=== PATIENT | female | born 1970 | race Caucasian/White ===

== ENCOUNTER → 2017-03-09 | Outpatient (CLI) | payer OTHER ==
--- NOTE | 2017-03-10 11:14 | MM ---
Reason for exam: screening (asymptomatic). Last mammogram was performed 1 year and 1 month ago. History: Patient is postmenopausal. Taking hormonal contraceptives for 10 years beginning at age 23. Physical Findings: A clinical breast exam by your physician is recommended on an annual basis and results should be correlated with mammographic findings. MG 3D Screening Mammo W/Cad Bilateral CC and MLO view(s) were taken. Prior study comparison: February 15, 2016, bilateral MG diagnostic mammo w CAD DONI. February 05, 2015, right breast MG 3d work up w/cad RT. There are outer breast asymmetries bilaterally at posterior depth on the left and at middle depth on the right deep to the stable calcifications on 3D views. ASSESSMENT: Incomplete: need additional imaging evaluation, BI-RAD 0 RECOMMENDATION: Special view mammogram of both breasts. If lesion persists on supplemental views, image directed ultrasound is recommended. [facility] will attempt to contact patient to return for supplemental views and ultrasound if indicated.
== END ==
LOC: RADMAMWWP 07:15
PROVIDERS: ATTEND Obstetrics & Gynecology
DX: Z12.31 Encounter for screening mammogram for malignant neoplasm of breast (principal)
CPT/HCPCS: 77063; G0202

== ENCOUNTER → 2017-03-22 | Outpatient (CLI) | payer OTHER ==
--- NOTE | 2017-03-22 07:55 | MM ---
Reason for exam: additional evaluation requested from abnormal screening. Last mammogram was performed less than 1 month ago. History: Patient is postmenopausal. Taking hormonal contraceptives for 10 years beginning at age 23. Physical Findings: Nurse did not find any significant physical abnormalities on exam. MG 3D Work Up W/Cad DONI Bilateral spot compression CC and LM view(s) were taken. Prior study comparison: March 09, 2017, bilateral MG 3d screening mammo w/cad. February 15, 2016, bilateral MG diagnostic mammo w CAD DONI. February 02, 2015, bilateral MG screening mammo w CAD. January 15, 2014, bilateral MG screening mammo w CAD. August 06, 2012, bilateral digital screening mammo w/CAD. There are scattered fibroglandular densities. No distinct lesions on additional views provided. These results were verbally communicated with the patient and result sheet given to the patient on 03/22/17. ASSESSMENT: Benign, BI-RAD 2 RECOMMENDATION: Return to routine screening mammogram schedule for both breasts.
== END | disposition home or self-care (01) ==
LOC: RADMAMWWP 06:59
PROVIDERS: ATTEND Obstetrics & Gynecology
DX: R92.8 Other abnormal and inconclusive findings on diagnostic imaging of breast (principal)
CPT/HCPCS: G0204; G0279

== ENCOUNTER → 2018-04-02 | Outpatient (CLI) | payer OTHER ==
--- NOTE | 2018-04-03 07:34 | MM ---
Reason for exam: screening (asymptomatic). Last mammogram was performed 1 year ago. History: Patient is postmenopausal. Taking hormonal contraceptives for 24 years beginning at age 23. Physical Findings: A clinical breast exam by your physician is recommended on an annual basis and results should be correlated with mammographic findings. MG 3D Screening Mammo W/Cad Bilateral CC and MLO view(s) were taken. Prior study comparison: March 22, 2017, bilateral MG 3d work up w/cad DONI. March 09, 2017, bilateral MG 3d screening mammo w/cad. The breast tissue is heterogeneously dense. This may lower the sensitivity of mammography. Calcifications in the right breast. No significant changes when compared with prior studies. ASSESSMENT: Benign, BI-RAD 2 RECOMMENDATION: Routine screening mammogram of both breasts in 1 year.
== END | disposition home or self-care (01) ==
LOC: RADMAMWWP 07:09
PROVIDERS: ATTEND Obstetrics & Gynecology
DX: Z12.31 Encounter for screening mammogram for malignant neoplasm of breast (principal)
CPT/HCPCS: 77063; 77067

== ENCOUNTER → 2019-06-03 | Outpatient (CLI) | payer OTHER, BC ==
--- NOTE | 2019-06-03 10:48 | MM ---
Reason for exam: screening (asymptomatic). Last mammogram was performed 1 year and 2 months ago. History: Patient is postmenopausal. Taking hormonal contraceptives for 24 years beginning at age 23. Physical Findings: A clinical breast exam by your physician is recommended on an annual basis and results should be correlated with mammographic findings. MG 3D Screening Mammo W/Cad Bilateral CC and MLO view(s) were taken. Prior study comparison: April 02, 2018, bilateral MG 3d screening mammo w/cad. March 22, 2017, bilateral MG 3d work up w/cad DONI. The breast tissue is heterogeneously dense. This may lower the sensitivity of mammography. Benign appearing bilateral calcifications. No suspicious abnormality. No significant changes when compared with prior studies. ASSESSMENT: Benign, BI-RAD 2 RECOMMENDATION: Routine screening mammogram of both breasts in 1 year.
== END | disposition home or self-care (01) ==
LOC: RADMAMWWP 07:04
PROVIDERS: ATTEND Obstetrics & Gynecology
DX: Z12.31 Encounter for screening mammogram for malignant neoplasm of breast (principal)
CPT/HCPCS: 77063; 77067

== ENCOUNTER → 2019-06-14 | Outpatient (CLI) | payer BC ==
[2019-06-14 12:02] LABS: Luteinizing Hormone 4.6 mIU/mL
[2019-06-14 12:03] LABS: Estradiol 22.6 pg/mL; Follicle Stimulating Hormone 9.9 mIU/mL
== END | disposition home or self-care (01) ==
LOC: LABWHC1 07:49
PROVIDERS: ATTEND Obstetrics & Gynecology
DX: N91.2 Amenorrhea, unspecified (principal)
CPT/HCPCS: 36415; 82670; 83001; 83002

== ENCOUNTER → 2019-09-27 | Outpatient (CLI) | payer BC | END | disposition home or self-care (01) | LOC: LABWHC1 08:22 | PROVIDERS: ATTEND Surgery Plastic and Reconstructive Surgery | DX: U07.1 COVID-19 (principal) ==

== ENCOUNTER 2019-10-02 07:31 | Day surgery (SDC) | payer BC ==
[2019-09-27 10:23] VITALS: BMI 32.9
[~2019-10-02 07:31] MED LIST: LACTATED RINGERS 1,000 ML IV SCH
[2019-10-02] MEDS ORDERED: LIDOCAINE 1% (10MG/ML) FOR IV START INTRADERMA ONE (08:06)
[2019-10-02 08:11] VITALS: RESP 16; TEMP 96.8
--- NOTE | 2019-10-02 08:11 | P.GSHP ---
History of Present Illness H&P Date: 10/02/19 CHIEF COMPLAINT: Colon screen HISTORY OF PRESENT ILLNESS: The patient is a 49-year-old female who presents for colon screen. Lower endoscopy was offered for further evaluation and management. PAST MEDICAL HISTORY: Please see list. PAST SURGICAL HISTORY: Please see list. MEDICATIONS: Please see list. ALLERGIES: Please see list. SOCIAL HISTORY: No illicit drug use FAMILY HISTORY: No reports of Crohn disease or ulcerative colitis. REVIEW OF ORGAN SYSTEMS: CONSTITUTIONAL: No reports of fevers or chills. PHYSICAL EXAM: VITAL SIGNS: Stable GENERAL: Well-developed pleasant in no acute distress. HEENT: No scleral icterus. Extraocular movements grossly intact. Moist buccal mucosa. NECK: Supple without lymphadenopathy. CHEST: Unlabored respirations. Equal bilateral excursions. CARDIOVASCULAR: Regular rate and rhythm. Distal 2+ pulses. ABDOMEN: Soft, nontender, nondistended. MUSCULOSKELETAL: No clubbing, cyanosis, or edema. ASSESSMENT: 1. Colon screen. PLAN: 1. Recommend proceeding with a lower endoscopy Past Medical History Past Medical History: Hypertension Additional Past Medical History / Comment(s): CHRONIC CONSTIPATION History of Any Multi-Drug Resistant Organisms: None Reported Past Surgical History: Uterine Ablation Additional Past Surgical History / Comment(s): UTERINE ABLATION 2009 Past Anesthesia/Blood Transfusion Reactions: No Reported Reaction Smoking Status: Never smoker - Past Family History Mother Family Medical History: Cancer Medications and Allergies Home Medications Medication Instructions Recorded Confirmed Type Control 1 tab PO DAILY 09/27/19 10/02/19 History Lisinopril [Zestril] 10 mg PO DAILY 09/27/19 10/02/19 History Allergies Allergy/AdvReac Type Severity Reaction Status Date / Time No Known Allergies Allergy Verified 10/02/19 07:51
[2019-10-02] MEDS ORDERED: PROPOFOL 10 MG/ML 20 ML VIAL IV ONE (08:31)
--- NOTE | 2019-10-02 08:54 | P.PCN ---
Date of Procedure: 10/02/19 Description of Procedure: PREOPERATIVE DIAGNOSIS: Colonoscopy screening. Family history colon cancer, father POSTOPERATIVE DIAGNOSIS: Colonoscopy screening. Family history colon cancer, father Sigmoid colon polyp OPERATION: Colonoscopy to the ileocecal valve and appendiceal orifice. Colonoscopy with cold forceps biopsy SURGEON: Blossom Chandra MD. ANESTHESIA: MAC. INDICATIONS: The patient is a 49-year-old female who presents for her first colonoscopy screening. Benefits and risks were described and informed consent was obtained. DESCRIPTION OF PROCEDURE: The patient had undergone Suprep. She had been brought into the operating room and laid in the left lateral decubitus position. After adequate intravenous sedation, the rectum was examined with 2% lidocaine jelly. No external hemorrhoids were encountered. The rectal tone was within normal limits. No lesions were palpated in the rectal vault. An Olympus colonoscope was advanced until the ileocecal valve and appendiceal orifice were clearly viewed. The prep was excellent with clear visualization of the mucosal folds. The scope was removed with visualization of each mucosal fold. No scattered diverticulosis was encountered. A 4 mm colon polyp was identified at the sigmoid colon, 20 cm from the anal verge removed with cold forceps biopsy. No evidence of focal colitis was found. Retroflexion of the scope demonstrated grade 1 internal hemorrhoids without active bleeding or inflammation. The colon was desufflated. The patient had tolerated the procedure well. Withdrawal time was over 6 minutes. FINDINGS: Aronchick preparation quality scale 1 (1-5) Internal hemorrhoids, grade 1 No external prolapsed hemorrhoids. No arteriovenous malformations. Removal of one colon polyp: - A 4 mm colon polyp was identified at the sigmoid colon, 20 cm from the anal verge removed with cold forceps biopsy. No focal colitis. RECOMMENDATIONS: Lower endoscopy in 5 years, 2024 Plan - Discharge Summary Discharge Rx Participant: No New Discharge Prescriptions: Continue Lisinopril [Zestril] 10 mg PO DAILY Control 1 tab PO DAILY Discharge Medication List Control 1 tab PO DAILY 09/27/19 [History] Lisinopril [Zestril] 10 mg PO DAILY 09/27/19 [History] Follow up Appointment(s)/Referral(s): Blossom Chandra MD [STAFF PHYSICIAN] - As Needed Patient Instructions/Handouts: Colorectal Polyps (IP), Colonoscopy (DC), *Surgery [facility] - (Anesthesia) Endoscopy Discharge Instructions Activity/Diet/Wound Care/Special Instructions: Repeat colonoscopy 5 years, 2024 Discharge Disposition: HOME SELF-CARE
[2019-10-02 09:15] VITALS: BP 115/75; PULSE 62
== END 2019-10-02 09:59 | disposition home or self-care (01) ==
LOC: ORWHC2ENDO 07:31
PROVIDERS: ATTEND Surgery Plastic and Reconstructive Surgery
DX: Z12.11 Encounter for screening for malignant neoplasm of colon (principal); K63.5 Polyp of colon; K64.0 First degree hemorrhoids; Z80.0 Family history of malignant neoplasm of digestive organs; I10 Essential (primary) hypertension; Z79.3 Long term (current) use of hormonal contraceptives; Z79.899 Other long term (current) drug therapy
CPT/HCPCS: 81025; 88305; 45380; J2704

== ENCOUNTER 2019-11-30 23:46 | Emergency (ER) | payer BC ==
[2019-11-30 23:54] VITALS: RESP 16; TEMP 98.2
[2019-12-01] MEDS ORDERED: AMOXIC-POT CLAV 875-125MG 1 EACH TAB PO STA (01:33)
[2019-12-01] MEDS ORDERED: AMOXIC-POT CLAV 875MG STARTER PACK 2 TAB BTL PO STA (01:33)
--- NOTE | 2019-12-01 01:33 | ED ---
General Adult HPI - General Chief complaint: ENT Stated complaint: FB in ear Time Seen by Provider: 11/30/19 23:56 Source: patient, RN notes reviewed, old records reviewed Mode of arrival: ambulatory Limitations: no limitations - History of Present Illness Initial comments: 49-year-old female patient presents to ED for foreign body left ear. Patient reports that she woke up and she felt something fluttering around in her ear. She thinks it's a moth. She denies any other complaints. Systemic: Pt denies fatigue, fever/chills, rash. Pt denies weakness, night sweats, weight loss. Neuro: Pt denies headache, visual disturbances, syncope or pre-syncope. HEENT: Pt denies ocular discharge or irritation, rhinorrhea, pharyngitis or notable lymphadenopathy. Cardiopulmonary: Pt denies chest pain, SOB, heart palpitations, dyspnea on exertion. Abdominal/GI: Pt denies abdominal pain, n/v/d. : Pt denies dysuria, burning w/ urination, frequency/urgency. Denies new onset urinary or bowel incontinence. MSK: Pt denies myalgia, loss of strength or function in extremities. Neuro: Pt denies new onset weakness, paresthesias. - Related Data Home Medications Medication Instructions Recorded Confirmed Control 1 tab PO DAILY 09/27/19 10/02/19 lisinopriL [Zestril] 10 mg PO DAILY 09/27/19 10/02/19 Previous Rx's Medication Instructions Recorded Amoxicillin/Potassium Clav 1 each PO Q12HR 7 Days #14 tab 12/01/19 [Augmentin 875-125 Tablet] Allergies Allergy/AdvReac Type Severity Reaction Status Date / Time No Known Allergies Allergy Verified 11/30/19 23:54 Review of Systems ROS Statement: Those systems with pertinent positive or pertinent negative responses have been documented in the HPI. ROS Other: All systems not noted in ROS Statement are negative. Past Medical History Past Medical History: No Reported History History of Any Multi-Drug Resistant Organisms: None Reported Past Surgical History: Uterine Ablation Past Psychological History: No Psychological Hx Reported Smoking Status: Never smoker Past Alcohol Use History: Occasional Past Drug Use History: None Reported General Exam - General Exam Comments Initial Comments: Constitutional: NAD, AOX3, Pt has pleasant affect. HEENT: NC/AT, trachea midline, neck supple, no lymphadenopathy. Posterior pharynx non erythematous, without exudates. External ears appear normal, without discharge. Likely insect noted in left ear. Visible TM intact. Some blood noted likely from the insect. Left TM pale zeng. Mucous membranes moist. EOM intact. There is no scleral icterus. No pallor noted. Cardiopulmonary: RRR, no murmurs, rubs or gallops, no JVD noted. Lungs CTAB in anterior and posterior murillo. No peripheral edema. Neuro: CN II-XII grossly intact. No nuchal rigidity. Limitations: no limitations Course Vital Signs 11/30/19 23:51 Temperature 98.2 F Pulse Rate 117 H Respiratory 16 Rate Blood Pressure 143/73 O2 Sat by Pulse 99 Oximetry Medical Decision Making - Medical Decision Making 49-year-old female patient presents to ED for evaluation of foreign body in left ear. There does appear to be insect in left ear. There is some blood likely from the insect, the infected dad. Multiple times to remove the insect were unsuccessful with forceps. Patient will discharge a follow-up with ENT tomorrow. Will be placed on prophylactic Augmentin. Will return to ED if condition worsens. Case discussed with Dr. Wong. Disposition Clinical Impression: Foreign body of ear, left Disposition: HOME SELF-CARE Condition: Stable Instructions (If sedation given, give patient instructions): Ear Foreign Body (ED) Additional Instructions: Follow-up with primary care provider and ENT tomorrow. Take antibiotics as directed. Return to ER if condition worsens. Prescriptions: Amoxicillin/Potassium Clav [Augmentin 875-125 Tablet] 1 each PO Q12HR 7 Days #14 tab Is patient prescribed a controlled substance at d/c from ED?: No Referrals: Roland Saunders DO [Primary Care Provider] - 1-2 days Raymon Beauchamp DO [Doctor of Osteopathic Medicine] - 1-2 days
[2019-12-01 01:53] VITALS: BP 132/73; PULSE 84
== END 2019-12-01 01:52 | disposition home or self-care (01) ==
LOC: EC 23:46
DX: T16.2XXA Foreign body in left ear, initial encounter (principal); Z79.899 Other long term (current) drug therapy; Z79.3 Long term (current) use of hormonal contraceptives
CPT/HCPCS: 69200; 99283

== ENCOUNTER → 2020-07-30 | Outpatient (CLI) | payer BC ==
--- NOTE | 2020-07-31 12:07 | MM ---
Reason for exam: screening (asymptomatic). Last mammogram was performed 1 year and 2 months ago. History: Patient is postmenopausal. Taking hormonal contraceptives for 24 years beginning at age 23. Physical Findings: A clinical breast exam by your physician is recommended on an annual basis and results should be correlated with mammographic findings. MG 3D Screening Mammo W/Cad Bilateral CC and MLO view(s) were taken. Prior study comparison: June 03, 2019, bilateral MG 3d screening mammo w/cad. April 02, 2018, bilateral MG 3d screening mammo w/cad. The breast tissue is heterogeneously dense. This may lower the sensitivity of mammography. Some dermal calcifications redemonstrated right upper outer quadrant. No significant changes when compared with prior studies. ASSESSMENT: Benign, BI-RAD 2 RECOMMENDATION: Routine screening mammogram of both breasts in 1 year.
== END | disposition home or self-care (01) ==
LOC: RADMAMWWP 06:52
PROVIDERS: ATTEND Obstetrics & Gynecology
DX: Z12.31 Encounter for screening mammogram for malignant neoplasm of breast (principal)
CPT/HCPCS: 77063; 77067

== ENCOUNTER → 2021-08-12 | Outpatient (CLI) | payer BC ==
--- NOTE | 2021-08-12 11:58 | BD ---
EXAMINATION TYPE: Axial Bone Density DATE OF EXAM: 08/12/2021 COMPARISON: NONE CLINICAL HISTORY: 50 years year old Female. ICD-10 CODE: Z78.0 POST MENOPAUSAL WITHOUT HRT Height: 63 Weight: 183 FRAX RISK QUESTIONS: Alcohol (3 or more units per day): NO Family History (Parent hip fracture): NO Glucocorticoids (More than 3mos): NO (Ex: prednisone, prednisolone, methylprednisolone, dexamethasone, and hydrocortisone). History of Fracture in Adulthood: NO Secondary Osteoporosis: 1. Type 1 Diabetes: NO 2. Hyperthyroidism: NO 3. Menopause before 45: NO 4. Malnutrition: NO 5. Chronic liver disease: NO Rheumatoid Arthritis: NO Current Tobacco Use: NO RISK FACTORS HISTORY OF: Diet low in dairy products/other sources of calcium: yes If Premenopausal, do you have irregular periods: ABLATION Take estrogen and/or progesterone medications: BC PILLS How lon YEARS MEDICATIONS: control pills, Lexapro, BP meds, Vit D EXAM MEASUREMENTS: Bone mineral densitometry was performed using the [employer] System. Bone mineral density as measured about the Lumbar spine is: ----- L1-L4(G/cm2): 1.215 T Score Values are as follows: ----- L1: -0.6 ----- L2: -0.2 ----- L3: 0.5 ----- L4: 1.2 ----- L1-L4: 0.3 Bone mineral density has BASELINE Bone mineral density about the R hip (g/cm2): 0.985 Bone mineral density about the L hip (g/cm2): 0.932 T Score values are as follows: -----R Neck: -1.0 -----L Neck: -1.4 -----R Total: -0.2 -----L Total: -0.6 Bone mineral density is baseline FRAX%s: The graph provided illustrates a 5.3% chance for a major osteoporotic fx and a 0.4% chance fo r the hips probability for fx in 10 years time. IMPRESSION: Osteopenia (T Score between -2.5 and -1). There is slightly increased risk of fracture and the patient may be considered for treatment. Re-Screen 2-5 years. NOTE: T-SCORE=SD OF THE YOUNG ADULT MEAN.
--- NOTE | 2021-08-13 14:24 | MM ---
Reason for exam: screening (asymptomatic). Last mammogram was performed 1 year ago. History: Patient is postmenopausal. Taking hormonal contraceptives for 24 years beginning at age 23. Physical Findings: A clinical breast exam by your physician is recommended on an annual basis and results should be correlated with mammographic findings. MG 3D Screening Mammo W/Cad Bilateral CC and MLO view(s) were taken. Prior study comparison: July 30, 2020, bilateral MG 3d screening mammo w/cad. June 03, 2019, bilateral MG 3d screening mammo w/cad. There are scattered fibroglandular densities. No significant changes when compared with prior studies. ASSESSMENT: Benign, BI-RAD 2 RECOMMENDATION: Routine screening mammogram of both breasts in 1 year.
== END | disposition home or self-care (01) ==
LOC: RADMAMWWP 07:00
PROVIDERS: ATTEND Obstetrics & Gynecology
DX: Z12.31 Encounter for screening mammogram for malignant neoplasm of breast (principal); M85.80 Other specified disorders of bone density and structure, unspecified site; Z78.0 Asymptomatic menopausal state
CPT/HCPCS: 77063; 77067; 77080

== ENCOUNTER → 2022-08-15 | Outpatient (CLI) | payer BC ==
--- NOTE | 2022-08-16 07:28 | MM ---
Reason for Exam: Screening (asymptomatic). Last screening mammogram was performed 12 month(s) ago. Patient History: Menarche at age 10. First Full-Term at age 24. Postmenopausal. Currently using Hormonal Contraceptives, beginning at age 23 for 24 years. Risk Values: Sondra 5 year model risk: 1.2%. NCI Lifetime model risk: 9.4%. Prior Study Comparison: 06/03/2019 Bilateral Screening Mammogram, [facility]. 07/30/2020 Bilateral Screening Mammogram, [facility]. 08/12/2021 Bilateral Screening Mammogram, [facility]. Tissue Density: The breast tissue is heterogeneously dense. This may lower the sensitivity of mammography. Findings: Analyzed By CAD. There is no suspicious group of microcalcifications or new suspicious mass in either breast. Overall Assessment: Negative, BI-RAD 1 Management: Screening Mammogram of both breasts in 1 year. A clinical breast exam by your physician is recommended on an annual basis and results should be correlated with mammographic findings. Electronically signed and approved by: Tenzin Wilson M.D. Radiologis
== END | disposition home or self-care (01) ==
LOC: RADMAMWWP 08:09
PROVIDERS: ATTEND Obstetrics & Gynecology
DX: Z12.31 Encounter for screening mammogram for malignant neoplasm of breast (principal); Z78.0 Asymptomatic menopausal state
CPT/HCPCS: 77063; 77067

== ENCOUNTER → 2023-08-23 | Outpatient (CLI) | payer BC ==
--- NOTE | 2023-08-24 09:01 | MM ---
Reason for Exam: Screening (asymptomatic). Last mammogram was performed 1 year(s) and 1 month(s) ago. Patient History: Menarche at age 10. First Full-Term at age 24. Postmenopausal. Currently using Hormonal Contraceptives, beginning at age 23 for 24 years. Risk Values: Sondra 5 year model risk: 1.3%. NCI Lifetime model risk: 9.3%. Prior Study Comparison: 07/30/2020 Bilateral Screening Mammogram, [facility]. 08/12/2021 Bilateral Screening Mammogram, [facility]. 08/15/2022 Bilateral MG 3D screening mammo w/cad, [facility]. Tissue Density: The breasts are heterogeneously dense, which may obscure small masses. Findings: Analyzed By CAD. There is no suspicious group of microcalcifications or new suspicious mass in either breast. Benign appearing calcifications. Overall Assessment: Benign, BI-RAD 2 Management: Screening Mammogram of both breasts in 1 year. . Patient should continue monthly self-breast exams. A clinical breast exam by your physician is recommended on an annual basis. This exam should not preclude additional follow-up of suspicious palpable abnormalities. Note on Sondra scores and lifetime risk: 1. A Sondra score greater than 3% is considered moderate risk. If this is the case, consider specialist referral to assess eligibility for a risk reducing agent. 2. If overall lifetime risk for the development of breast cancer is 20% or higher, the patient may qualify for future screening with alternating mammogram and breast MRI. Electronically signed and approved by: Stuart Nunez M.D. Radiologis
== END | disposition home or self-care (01) ==
LOC: RADMAMWWP 08:01
PROVIDERS: ATTEND Family Medicine
DX: Z12.31 Encounter for screening mammogram for malignant neoplasm of breast (principal); Z78.0 Asymptomatic menopausal state
CPT/HCPCS: 77063; 77067

== ENCOUNTER → 2023-08-30 | Outpatient (CLI) | payer BC ==
--- NOTE | 2023-08-30 19:44 | CA ---
Transthoracic Echo Report Name: Vicki Ascencio Age: 52 Gender: F : 1970 Exam Date: 08/30/2023 08:37 Exam Location: [facility] Ht (in): 62 Wt (lb): 178 Ordering Physician: Roland Saunders DO Attending/Referring Phys: Oncology Nurse Karol Gutierrez RDCS Procedure CPT: Indications: I34.0 NONRHEUMATIC MITRAL (VALVE) INSUFFICIENCY Cardiac Hx: Technical Quality: Contrast 1: Total Dose (mL): Contrast 2: Total Dose (mL): MEASUREMENTS (Male / Female) Normal Values 2D ECHO LV Diastolic Diameter PLAX 5.5 cm 4.2 - 5.9 / 3.9 - 5.3 cm LV Systolic Diameter PLAX 4.0 cm IVS Diastolic Thickness 1.0 cm 0.6 - 1.0 / 0.6 - 0.9 cm LVPW Diastolic Thickness 0.9 cm 0.6 - 1.0 / 0.6 - 0.9 cm LV Relative Wall Thickness 0.3 RV Internal Dim ED PLAX 1.9 cm LA Systolic Diameter LX 3.8 cm 3.0 - 4.0 / 2.7 - 3.8 cm LV Diastolic Volume MOD BP 112.7 cm??? 67 - 155 / 56 - 104 cm??? LV Systolic Volume MOD BP 52.2 cm??? 22 - 58 / 19 - 49 cm??? LV Ejection Fraction MOD BP 53.7 % >= 55 % LV Diastolic Volume MOD 4C 126.6 cm??? LV Systolic Volume MOD 4C 68.3 cm??? LV Ejection Fraction MOD 4C 46.0 % LV Diastolic Length 4C 7.8 cm LV Systolic Length 4C 7.0 cm LV Diastolic Volume MOD 2C 89.7 cm??? LV Systolic Volume MOD 2C 50.7 cm??? LV Ejection Fraction MOD 2C 43.5 % LV Diastolic Length 2C 6.9 cm LV Systolic Length 2C 6.9 cm M-MODE Aortic Root Diameter MM 2.3 cm LA Systolic Diameter MM 3.9 cm LA Ao Ratio MM 1.7 AV Cusp Separation MM 1.6 cm DOPPLER AV Peak Velocity 148.1 cm/s AV Peak Gradient 8.8 mmHg AI Peak Velocity 286.8 cm/s AI Peak Gradient 32.9 mmHg AI Pressure Half Time 1100.6 ms Mitral E Point Velocity 81.0 cm/s Mitral A Point Velocity 101.5 cm/s Mitral E to A Ratio 0.8 MV Deceleration Time 197.3 ms MV E' Velocity 4.2 cm/s Mitral E to MV E' Ratio 19.2 TR Peak Velocity 210.2 cm/s TR Peak Gradient 17.7 mmHg Right Ventricular Systolic Press 22.7 mmHg FINDINGS Left Ventricle Left ventricular ejection fraction is estimated at 40-45 %. Mildly increased left ventricular diastolic diameter. Mildly increased left ventricular diastolic volume. Mildly increased left ventricular systolic volume. Mildly decreased left ventricular ejection fraction. Atypical Septal Motion consistent with LBBB. Right Ventricle Normal right ventricular size and function. Right ventricular systolic pressure within normal limits. Right Atrium Normal right atrial size. Left Atrium Normal left atrial size. Mitral Valve Structurally normal mitral valve. [id number] mitral regurgitation. Aortic Valve Trileaflet aortic valve. Trace aortic regurgitation. No aortic stenosis. Tricuspid Valve Structurally normal tricuspid valve. Trace to mild tricuspid regurgitation. Pulmonic Valve Structurally normal pulmonic valve. No pulmonic stenosis. No pulmonic regurgitation. Pericardium No pericardial or pleural effusion. Aorta Normal size aortic root and proximal ascending aorta. CONCLUSIONS Mildly impaired LV function was EF between 40-45% [id number] mitral regurgitation Previewed by: Dr. Jay Espinoza MD (Electronically Signed) Final Date: 30 Aug 2023 19:44
== END | disposition home or self-care (01) ==
LOC: RADECHMAIN 08:30
PROVIDERS: ATTEND Family Medicine
DX: I34.0 Nonrheumatic mitral (valve) insufficiency (principal)
CPT/HCPCS: 93306

== ENCOUNTER → 2024-03-08 | Outpatient (CLI) | payer BC ==
--- NOTE | 2024-03-10 21:11 | US ---
EXAMINATION TYPE: US abdomen complete DATE OF EXAM: 03/08/2024 COMPARISON: NONE CLINICAL INDICATION: Female, 53 years old with history of D47.3 THROMBOCYTOSIS; sharp pain 6 months a go, no issues now TECHNIQUE: Grayscale and color Doppler imaging of the abdomen was performed. FINDINGS: EXAM MEASUREMENTS: Liver Length: 16.8 cm, normal less than 15.5 cm. Gallbladder Wall: 0.3 cm CBD: 0.3 cm, color Doppler imaging was utilized to isolate the common bile duct for measurement. Spleen: 10.4 cm Right Kidney: 11.3 x 5.4 x 5.4cm Left Kidney: 11.5 x 5.4 x 6.1cm Pancreas: wnl Liver: wnl Gallbladder: wnl Evidence for sonographic Isaac's sign: no CBD: wnl Spleen: wnl Right Kidney: wnl Left Kidney: wnl Upper IVC: wnl Abd Aorta: wnl IMPRESSION: 1. Liver slightly prominent [facility], , 03/10/2024 9:09 PM
== END | disposition home or self-care (01) ==
LOC: RADUSWWP 07:37
PROVIDERS: ATTEND Internal Medicine Hematology & Oncology
DX: D47.3 Essential (hemorrhagic) thrombocythemia (principal); I10 Essential (primary) hypertension; Z71.3 Dietary counseling and surveillance
CPT/HCPCS: 76700

== ENCOUNTER → 2024-10-01 | Outpatient (CLI) | payer BC ==
--- NOTE | 2024-10-01 11:19 | MM ---
Reason for Exam: Screening (asymptomatic). Last mammogram was performed 1 year(s) and 1 month(s) ago. Patient History: Menarche at age 10. First Full-Term at age 24. Postmenopausal. Hormonal Contraceptives, starting at age 23 for 24 years. Risk Values: Sondra 5 year model risk: 1.4%. NCI Lifetime model risk: 8.9%. Prior Study Comparison: 08/12/2021 Bilateral Screening Mammogram, [facility]. 08/15/2022 Bilateral MG 3D screening mammo w/cad, [facility]. 08/23/2023 Bilateral MG 3D screening mammo w/cad, [facility]. Tissue Density: There are scattered areas of fibroglandular density. Findings: Analyzed By CAD. Stable group of benign-appearing round calcifications in the outer aspect right breast. Stable a few scattered small benign appearing round calcifications throughout the left breast. There is no suspicious group of microcalcifications or new suspicious mass in either breast. Overall Assessment: Benign, BI-RAD 2 Management: Screening Mammogram of both breasts in 1 year. . Patient should continue monthly self-breast exams. A clinical breast exam by your physician is recommended on an annual basis. This exam should not preclude additional follow-up of suspicious palpable abnormalities. Note on Sondra scores and lifetime risk: 1. A Sondra score greater than 3% is considered moderate risk. If this is the case, consider specialist referral to assess eligibility for a risk reducing agent. 2. If overall lifetime risk for the development of breast cancer is 20% or higher, the patient may qualify for future screening with alternating mammogram and breast MRI. [facility], , 10/01/2024 11:17 AM. Electronically signed and approved by: Quinten Mathews M.D.
== END | disposition home or self-care (01) ==
LOC: RADMAMWWP 08:24
PROVIDERS: ATTEND Family Medicine
DX: Z12.31 Encounter for screening mammogram for malignant neoplasm of breast (principal); R92.323 Mammographic fibroglandular density, bilateral breasts; Z78.0 Asymptomatic menopausal state; Z92.0 Personal history of contraception
CPT/HCPCS: 77063; 77067